=== PATIENT | female | born 2000 | race Caucasian/White ===

== ENCOUNTER 2024-02-21 01:50 | Inpatient (IN) | payer OTHER ==
[~2024-02-21] VITALS: Ht 160 cm; Wt 67.3 kg
[2024-02-21] VITALS (38 sets, daily range): BP systolic 12–146; BP diastolic 57–77; PULSE 71–115; TEMP 98–98.9
--- NOTE | 2024-02-21 02:00 | NUR ---
PT PRESENTS TO L&D WITH COMPLAINT OF CTX'S SINCE MIDNIGHT AND POSSIBLE WATER BROKE AT 0155.
--- NOTE | 2024-02-21 02:10 | NUR ---
DR MCMAHAN NOTIFIED PT HERE HAVING CTX'S SINCE MIDNIGHT, SROM AT 0155 CLEAR, ROM + IS POSITIVE. CTX'S AT 4-5 MINS APART AND PT BREATHING THRU THEM. SVE /-2. PT C/O HEARTBURN. ORDERS TO ADMIT, PT CAN HAVE EPIDURAL WHEN SHE WANTS IT. PRILOSEC FOR HEARTBURN.
[2024-02-21] MEDS ORDERED: LR 1,000 ML IV PRN (02:30)
[2024-02-21] MEDS ORDERED: LR & Oxytocin 500 ML IV SCH (03:30)
[2024-02-21] MEDS ORDERED: LR 1,000 ML IV SCH (03:30)
[2024-02-21 03:59] LABS: BASO # 0.1 K/mm3 (0.0-0.2); BASO % 0.6 % (0.0-2.0); EOS # 0.1 K/mm3 (0.0-0.7); EOS % 0.8 % (0.0-4.0); GRAN # 6.6 K/mm3 (1.4-6.5); GRAN % 62.2 % (42.2-75.2); HEMATOCRIT 39.6 % (37.0-47.0); HEMOGLOBIN 13.7 g/dl (12.5-16.0); LYMPH # 2.9 K/mm3 (1.2-3.4); LYMPH % 26.9 % (20.0-51.0); MEAN CELL VOLUME 88 fl (80.0-100.0); MEAN CORPUSCULAR HEMOGLOBIN 30 pg (27-31); MEAN CORPUSCULAR HGB CONC 35 g/dl (33.0-37.0); MEAN PLATELET VOLUME 11.1 fl (7.4-10.4); MONO % 9.2 % (1.7-9.3); PLATELET COUNT 254 K/mm3 (130-400); RED BLOOD COUNT 4.51 M/mm3 (4.10-5.30); REDCELL DISTRIBUTION WIDTH-CV 13.2 % (11.5-14.5)
--- NOTE | 2024-02-21 04:18 | NUR ---
PT C/O SEVERE BACK PAIN, REQUESTING AN EPIDURAL. IV BOLUS STARTED. KRANTHI GORDON METAL FURNITURE GLAZIER NOTIFIED FOR EPIDURAL. PT UP STANDING BESIDE THE BED.
--- NOTE | 2024-02-21 04:50 | NUR ---
pt in sitting position for epidural. [id number] Brian Lepe CHECKROOM CHIEF in room.
[2024-02-21] MEDS ORDERED: ROPivacaine PF 0.2% 200 ML IV ONE (04:51)
[2024-02-21] MEDS ORDERED: ePHEDrine 50 MG/10 ML VIAL IV PRN (05:30)
[2024-02-21] MEDS ORDERED: Ondansetron 4 MG/2 ML VIAL IV PRN (05:30)
[2024-02-21] MEDS ORDERED: diphenhydrAMINE 25 MG CAP PO PRN (05:30)
[2024-02-21] MEDS ORDERED: Naloxone 0.4 MG/ML VIAL IV PRN ×2 (05:30→14:15)
[2024-02-21] MEDS ORDERED: diphenhydrAMINE 50 MG/ML 1 ML VIAL IV PRN (05:30)
[2024-02-21] MEDS ORDERED: PRENATAL (06:36)
[2024-02-21] MEDS ORDERED: Omeprazole 20 MG **** subs to Pantoprazole 40 MG PO SCH (07:00)
[2024-02-21] MEDS ORDERED: Magnes Hydrox (MOM) 80 MG/ML 30 ML CUP PO PRN (13:00)
[2024-02-21] MEDS ORDERED: Loratadine 10 MG TAB PO PRN (13:00)
[2024-02-21] MEDS ORDERED: Phenylephrine/Mineral Oil/Petrolatum 57 GM TUBE RC PRN (14:15)
[2024-02-21] MEDS ORDERED: oxyCODONE 5 MG TAB PO PRN (14:15)
[2024-02-21] MEDS ORDERED: Acetaminophen 500 MG TAB PO SCH (14:15)
[2024-02-21] MEDS ORDERED: Measles/Mumps/Rubella Virus Vaccine Live w Diluent 0.5 ML VIAL SQ SCH (14:15)
[2024-02-21] MEDS ORDERED: Mag/Al Hydrox/Simeth Susp 30 ML CUP PO PRN (14:15)
[2024-02-21] MEDS ORDERED: Ibuprofen 800 MG TAB PO SCH (14:15)
[2024-02-21] MEDS ORDERED: Witch Hazel 50% Pads Bulk TUB TP PRN (14:15)
[2024-02-21] MEDS ORDERED: Sennosides/Docusate 8.6-50 MG TAB PO SCH (17:00)
[2024-02-21] MEDS ORDERED: traZODone 50 MG TAB PO PRN (21:00)
[2024-02-22 04:00] VITALS: BP 112/68; PULSE 73; TEMP 98.3
[2024-02-22 08:18] VITALS: BP 116/80; PULSE 80; TEMP 98
[2024-02-22] MEDS ORDERED: IBU800 M1 PO (10:13)
== END 2024-02-22 16:10 | disposition home or self-care (01) | DRG 807 ==
LOC: LDRO 01:50 → LDR 03:28 → OB 18:09
PROVIDERS: Internal Medicine; ADMIT Obstetrics & Gynecology
PROC: 10E0XZZ Delivery of Products of Conception, External Approach (ICD-10-PCS; principal; 2024-02-21)
PROC: 0KQM0ZZ Repair Perineum Muscle, Open Approach (ICD-10-PCS; 2024-02-21)
DX: O70.1 Second degree perineal laceration during delivery (principal); Z37.0 Single live birth; Z3A.40 40 weeks gestation of pregnancy
CPT/HCPCS: J2405; J2590; J2795; J7120